=== PATIENT | female | born 1945 | race Caucasian/White ===

== ENCOUNTER 2023-01-29 14:43 | Inpatient (IN) | payer BC, MEDICAID ==
[~2023-01-29] VITALS: Ht 157.5 cm; Wt 69.9 kg
[2023-01-29 14:45] VITALS: BP_SYST 169; PULSE 82; RESP 18; TEMP 97; O2SAT 98
[2023-01-29] MEDS ORDERED: iohexoL 350 mgI/mL, 100 ML INFUS..BTL IV ONE (15:10)
[2023-01-29] MEDS ORDERED: LOSA-413 PO (15:11)
[2023-01-29] MEDS ORDERED: LOSA1TAB9 PO (15:11)
[2023-01-29] MEDS ORDERED: ALBU0.63 (15:11)
[2023-01-29] MEDS ORDERED: BECL8.7A6 (15:11)
[2023-01-29] MEDS ORDERED: ASPIRIN 325 MG TABLET PO ONE (16:00)
[2023-01-29 16:21] LABS: BASOPHILS % (AUTO) 0.2 % (0.0-2.0); EOSINOPHILS # (AUTO) 0.1 K/uL (0.0-0.4); EOSINOPHILS % (AUTO) 0.7 % (0.0-4.0); HEMATOCRIT 44.3 % (36-48); HEMOGLOBIN 14.4 g/dL (12.0-16.0); LYMPHOCYTES # (AUTO) 2.4 K/uL (1.0-5.5); LYMPHOCYTES % (AUTO) 29.1 % (20.5-51.5); MEAN CORPUSCULAR HEMOGLOBIN 31 pg (27-31); MEAN CORPUSCULAR HGB CONC 33 % (32-36); MEAN CORPUSCULAR VOLUME 97 fL (79.0-98.0); MONOCYTES # (AUTO) 0.7 K/uL (0.0-1.0); MONOCYTES % (AUTO) 9.2 % (1.7-9.3); NEUTROPHILS # (AUTO) 4.9 K/uL (1.8-7.7); NEUTROPHILS % (AUTO) 60.8 % (40.0-70.0); PLATELET COUNT (AUTO) 177 K/uL (130-430); RED BLOOD CELL COUNT(AUTO) 4.58 MIL/uL (4.2-6.2); RED CELL DISTRIBUTION WIDTH 13.7 % (9.0-15.0); WHITE BLOOD COUNT (AUTO) 8.1 K/uL (4.8-10.8)
[2023-01-29 16:29] LABS: ANION GAP 9 (5-15); CALCIUM 9.6 mg/dL (8.4-11.0); CARBON DIOXIDE 22 mmol/L (23-29); CHLORIDE 108 mmol/L (98-107); CREATININE 0.73 mg/dL (0.55-1.30); GLUCOSE 91 mg/dL (74-106); POTASSIUM 4.2 mmol/L (3.5-5.1); SODIUM SERUM 139 mmol/L (136-145); UREA NITROGEN, BLOOD 22 mg/dL (8-21)
[2023-01-29] MEDS ORDERED: CLOPIDOGREL BISULFATE 75 MG TABLET PO ONE (16:30)
[2023-01-29 16:31] LABS: INR 1.1 (0.8-1.2); PROTHROMBIN TIME 10.9 SECS (9.5-12.5)
[2023-01-29 16:33] LABS: ALANINE AMINOTRANSFERASE 14 U/L (12-78); ALBUMIN 3.4 g/dL (3.4-4.8); ASPARTATE AMINOTRANSFERASE 21 U/L (10-37); CHOLESTEROL 210 mg/dL (<200); HDL CHOLESTEROL 66 mg/dL (>55); TOTAL BILIRUBIN 0.6 mg/dL (0.0-1.0); TOTAL PROTEIN, SERUM 6.8 g/dL (6.4-8.3); TRIGLYCERIDES 108 mg/dL (30-150)
[2023-01-29 16:39] LABS: BILIRUBIN,URINE NEGATIVE (NEGATIVE); BLOOD, URINE NEGATIVE (NEGATIVE); COLOR,URINE YELLOW (YELLOW); GLUCOSE,URINE NEGATIVE (NEGATIVE); KETONES,URINE NEGATIVE (NEGATIVE); LEUKOCYTE ESTERASE ,URINE NEGATIVE (NEGATIVE); NITRITE, URINE POSITIVE (NEGATIVE); PH,URINE 6.5 (5.0-8.0); PROTEIN URINE NEGATIVE (NEGATIVE); UROBILINOGEN,URINE 0.2 (0.2-1.0)
[2023-01-29 17:16] LABS: CLARITY/URINE SLIGHTLY HAZY (CLEAR)
[2023-01-29 17:21] LABS: BACTERIA,URINE MANY /HPF (None Seen); RBC,URINE NONE SEEN /HPF (0-3)
[2023-01-29 17:22] LABS: MUCUS,URINE None Seen /LPF (None Seen)
[2023-01-29] MEDS ORDERED: cefTRIAXone 1 GM IVPB PREMIX 50 ML IV ONE (17:45)
[2023-01-29] MEDS ORDERED: ACETAMINOPHEN 325 MG TABLET ONE (18:10)
[2023-01-29] MEDS ORDERED: ACETAMINOPHEN 500 MG TABLET PO ONE (18:15)
[2023-01-29 19:00] VITALS: BP_SYST 131; PULSE 71; RESP 18; TEMP 98.4
[2023-01-29 19:05] VITALS: BP_SYST 146; PULSE 63; RESP 18; TEMP 98.7; O2SAT 97
[2023-01-29 20:00] VITALS: O2SAT 97
[2023-01-29] MEDS ORDERED: ALBUTEROL SULFATE 0.083% 2.5 MG/3 ML VIAL.NEB INH PRN (20:00)
[2023-01-29] MEDS ORDERED: LORazepam 2 MG/ML VIAL IVP PRN (20:00)
[2023-01-29] MEDS ORDERED: ACETAMINOPHEN 325 MG TABLET PO PRN ×2 (20:00→20:15)
[2023-01-30] VITALS (9 sets, daily range): BP systolic 112–135; PULSE 60–94; RESP 14–20; TEMP 95.2–97.7; O2SAT 94–99
[2023-01-30] MEDS: NORMAL SALINE 5 ML DISP.SYRIN IVF SCH ×4 (00:36→23:22)
[2023-01-30] MEDS ORDERED: LORazepam 2 MG/ML VIAL IVP PRN (03:00)
[2023-01-30] MEDS: ONDANSETRON HCL 4 MG/2 ML VIAL IVP PRN ×2 (05:05→23:22)
[2023-01-30 06:58] LABS: BASOPHILS % (AUTO) 0.4 % (0.0-2.0); EOSINOPHILS # (AUTO) 0.1 K/uL (0.0-0.4); EOSINOPHILS % (AUTO) 1.5 % (0.0-4.0); HEMATOCRIT 43.4 % (36-48); LYMPHOCYTES # (AUTO) 2.2 K/uL (1.0-5.5); LYMPHOCYTES % (AUTO) 30.5 % (20.5-51.5); MEAN CORPUSCULAR HEMOGLOBIN 31 pg (27-31); MEAN CORPUSCULAR HGB CONC 32 % (32-36); MEAN CORPUSCULAR VOLUME 96 fL (79.0-98.0); MONOCYTES # (AUTO) 0.8 K/uL (0.0-1.0); MONOCYTES % (AUTO) 10.7 % (1.7-9.3); NEUTROPHILS # (AUTO) 4.1 K/uL (1.8-7.7); NEUTROPHILS % (AUTO) 56.9 % (40.0-70.0); PLATELET COUNT (AUTO) 174 K/uL (130-430); RED BLOOD CELL COUNT(AUTO) 4.51 MIL/uL (4.2-6.2); RED CELL DISTRIBUTION WIDTH 13.5 % (9.0-15.0); WHITE BLOOD COUNT (AUTO) 7.2 K/uL (4.8-10.8)
[2023-01-30] MEDS: BUDESONIDE 0.5 MG/2 ML AMPUL.NEB INH SCH ×2 (07:00→19:00)
[2023-01-30 07:29] LABS: ALANINE AMINOTRANSFERASE 18 U/L (12-78); ALBUMIN 3.1 g/dL (3.4-4.8); ANION GAP 7 (5-15); ASPARTATE AMINOTRANSFERASE 23 U/L (10-37); CALCIUM 9.1 mg/dL (8.4-11.0); CARBON DIOXIDE 23 mmol/L (23-29); CHLORIDE 109 mmol/L (98-107); CREATININE 0.69 mg/dL (0.55-1.30); GLUCOSE 96 mg/dL (74-106); PHOSPHORUS 2.9 mg/dL (2.7-4.5); POTASSIUM 4.3 mmol/L (3.5-5.1); SODIUM SERUM 139 mmol/L (136-145); TOTAL BILIRUBIN 0.8 mg/dL (0.0-1.0); TOTAL PROTEIN, SERUM 6.4 g/dL (6.4-8.3); UREA NITROGEN, BLOOD 19 mg/dL (8-21)
[2023-01-30 07:32] LABS: HEMOGLOBIN A1C 5.79 % (<5.7)
[2023-01-30] MEDS: LOSARTAN POTASSIUM 50 MG TABLET (COZAAR) PO SCH (09:24)
[2023-01-30] MEDS: HYDROCHLOROTHIAZIDE 12.5 MG CAPSULE (HCTZ) PO SCH (09:24)
[2023-01-30] MEDS: ATORVASTATIN 20 MG TABLET PO SCH (09:25)
[2023-01-30] MEDS ORDERED: cefTRIAXone 1 GM IVPB PREMIX 50 ML IV SCH (18:00)
[2023-01-31 01:03] VITALS: BP_SYST 144; PULSE 65; RESP 15; TEMP 96.8; O2SAT 97
[2023-01-31] MEDS: NORMAL SALINE 5 ML DISP.SYRIN IVF SCH ×2 (05:10→13:35)
[2023-01-31 06:51] LABS: BASOPHILS % (AUTO) 0.2 % (0.0-2.0); EOSINOPHILS # (AUTO) 0.2 K/uL (0.0-0.4); EOSINOPHILS % (AUTO) 2.4 % (0.0-4.0); HEMATOCRIT 42.6 % (36-48); HEMOGLOBIN 13.8 g/dL (12.0-16.0); LYMPHOCYTES % (AUTO) 28.6 % (20.5-51.5); MEAN CORPUSCULAR HEMOGLOBIN 31 pg (27-31); MEAN CORPUSCULAR HGB CONC 32 % (32-36); MEAN CORPUSCULAR VOLUME 96 fL (79.0-98.0); MONOCYTES # (AUTO) 0.8 K/uL (0.0-1.0); MONOCYTES % (AUTO) 11.6 % (1.7-9.3); NEUTROPHILS % (AUTO) 57.2 % (40.0-70.0); PLATELET COUNT (AUTO) 176 K/uL (130-430); RED BLOOD CELL COUNT(AUTO) 4.45 MIL/uL (4.2-6.2); RED CELL DISTRIBUTION WIDTH 13.4 % (9.0-15.0); WHITE BLOOD COUNT (AUTO) 7.1 K/uL (4.8-10.8)
[2023-01-31 07:07] LABS: ANION GAP 6 (5-15); CALCIUM 9.1 mg/dL (8.4-11.0); CARBON DIOXIDE 23 mmol/L (23-29); CHLORIDE 107 mmol/L (98-107); GLUCOSE 101 mg/dL (74-106); POTASSIUM 4.1 mmol/L (3.5-5.1); SODIUM SERUM 136 mmol/L (136-145); UREA NITROGEN, BLOOD 23 mg/dL (8-21)
[2023-01-31 07:17] LABS: ERYTHROCYTE SEDIMENTATION RATE 17 MM/HR (0-20)
[2023-01-31 07:52] VITALS: BP_SYST 133; PULSE 64; RESP 13; TEMP 96.6; O2SAT 96
[2023-01-31 07:53] VITALS: O2SAT 95
[2023-01-31] MEDS: BUDESONIDE 0.5 MG/2 ML AMPUL.NEB INH SCH (07:53)
[2023-01-31] MEDS: HYDROCHLOROTHIAZIDE 12.5 MG CAPSULE (HCTZ) PO SCH (09:22)
[2023-01-31] MEDS: LOSARTAN POTASSIUM 50 MG TABLET (COZAAR) PO SCH (09:22)
[2023-01-31] MEDS: ATORVASTATIN 20 MG TABLET PO SCH (09:22)
[2023-01-31 12:03] VITALS: BP_SYST 118; PULSE 69; RESP 16; TEMP 98.1; O2SAT 97
[2023-01-31] MEDS ORDERED: LIP20 PO (13:17)
[2023-01-31 14:40] VITALS: BP_SYST 122; PULSE 70; RESP 14; TEMP 97.2; O2SAT 95
[2023-01-31] MEDS ORDERED: DOCUSATE SODIUM 100 MG CAPSULE PO SCH (21:00)
== END 2023-01-31 18:57 | disposition home health service (06) | DRG 74 ==
LOC: EDBD 14:43 → SED 14:43 → STU 16:56 → SMU 01-31 17:06
PROVIDERS: ADMIT Preventive Medicine Preventive Medicine/Occupational Environmental Medicine; ATTEND Preventive Medicine Preventive Medicine/Occupational Environmental Medicine
DX: M54.12 Radiculopathy, cervical region (principal); N39.0 Urinary tract infection, site not specified; G45.9 Transient cerebral ischemic attack, unspecified; R07.9 Chest pain, unspecified; I10 Essential (primary) hypertension; J44.9 Chronic obstructive pulmonary disease, unspecified; R73.03 Prediabetes; E78.2 Mixed hyperlipidemia; B96.89 Other specified bacterial agents as the cause of diseases classified elsewhere; E88.09 Other disorders of plasma-protein metabolism, not elsewhere classified; G62.9 Polyneuropathy, unspecified; Z88.1 Allergy status to other antibiotic agents; Z88.5 Allergy status to narcotic agent; Z88.8 Allergy status to other drugs, medicaments and biological substances; Z79.899 Other long term (current) drug therapy
CPT/HCPCS: 36415; 70450-TC; 70496; 70498; 70551; 71045; 76376; 80048; 80053; 80061; 81000; 83037; 83735; 84100; 84484; 85025; 85610-TC; 85651-TC; 85730-TC; 87086; 93005; 93306; 94640; 94760; 96365; 97116-GP; 97163-GP; 97530-GP; 99285; G0378; J0696; J2405; J7626; Q9967

== ENCOUNTER 2023-05-04 12:17 | Emergency (ER) | payer BC, MEDICAID ==
[~2023-05-04] VITALS: Ht 157.5 cm; Wt 67.6 kg
[2023-05-04 12:17] VITALS: BP_SYST 138; PULSE 74; RESP 20; TEMP 98.2; O2SAT 98
[~2023-05-04 12:17] MED LIST: ALBU0.63; BECL8.7A6; LIP20 PO; LOSA-413 PO; LOSA1TAB9 PO
[2023-05-04] MEDS ORDERED: KETOROLAC TROMETHAMINE 30 MG VIAL IM ONE (12:45)
[2023-05-04 13:09] LABS: BASOPHILS % (AUTO) 0.4 % (0.0-2.0); EOSINOPHILS % (AUTO) 0.4 % (0.0-4.0); HEMATOCRIT 42.7 % (36-48); HEMOGLOBIN 14.3 g/dL (12.0-16.0); MEAN CORPUSCULAR HEMOGLOBIN 32 pg (27-31); MEAN CORPUSCULAR HGB CONC 33 % (32-36); MEAN CORPUSCULAR VOLUME 95 fL (79.0-98.0); MONOCYTES # (AUTO) 0.8 K/uL (0.0-1.0); MONOCYTES % (AUTO) 9.6 % (1.7-9.3); NEUTROPHILS # (AUTO) 5.4 K/uL (1.8-7.7); NEUTROPHILS % (AUTO) 65.6 % (40.0-70.0); PLATELET COUNT (AUTO) 205 K/uL (130-430); RED BLOOD CELL COUNT(AUTO) 4.52 MIL/uL (4.2-6.2); WHITE BLOOD COUNT (AUTO) 8.2 K/uL (4.8-10.8)
[2023-05-04 13:24] LABS: ALANINE AMINOTRANSFERASE 32 U/L (12-78); ALBUMIN 3.5 g/dL (3.4-4.8); ANION GAP 9 (5-15); ASPARTATE AMINOTRANSFERASE 27 U/L (10-37); CALCIUM 10.1 mg/dL (8.4-11.0); CARBON DIOXIDE 25 mmol/L (23-29); CHLORIDE 108 mmol/L (98-107); CREATININE 0.84 mg/dL (0.55-1.30); GLUCOSE 91 mg/dL (74-106); POTASSIUM 4.1 mmol/L (3.5-5.1); SODIUM SERUM 142 mmol/L (136-145); TOTAL BILIRUBIN 0.7 mg/dL (0.0-1.0); TOTAL PROTEIN, SERUM 6.9 g/dL (6.4-8.3); UREA NITROGEN, BLOOD 18 mg/dL (8-21)
[2023-05-04] MEDS ORDERED: MECL-292 PO (14:00)
[2023-05-04 14:33] VITALS: BP_SYST 136; PULSE 69; RESP 18; TEMP 97.9; O2SAT 96
== END 2023-05-04 14:34 | disposition home or self-care (01) ==
LOC: SED 12:17
DX: R53.1 Weakness (principal); R51.9 Headache, unspecified; R42 Dizziness and giddiness; I10 Essential (primary) hypertension; E78.5 Hyperlipidemia, unspecified; Z88.1 Allergy status to other antibiotic agents; Z88.5 Allergy status to narcotic agent; Z88.6 Allergy status to analgesic agent; Z79.899 Other long term (current) drug therapy
CPT/HCPCS: 99285; 70450; 71045; 80053; 83880; 85025; 84484; 36415; 93005; 76376; 96372; J1885